=== PATIENT | male | born 1940 | race Two or more races ===

== ENCOUNTER 2019-01-27 00:57 | Inpatient (IN) | payer MEDICARE, OTHER ==
[~2019-01-27] VITALS: Ht 165.1 cm; Wt 85.7 kg
--- NOTE | 2019-01-27 01:05 | NUR ---
Crissy ulloa in [facility] - 01/27/19 at 0137 by SHEBA XRAY AT BEDSIDE.
[2019-01-27] MEDS ORDERED: APIX5TAB PO (01:06)
[2019-01-27] MEDS ORDERED: LISI1TAB9 PO (01:06)
[2019-01-27] MEDS ORDERED: ASPI-605 PO (01:06)
[2019-01-27] MEDS ORDERED: SITA100T PO (01:06)
[2019-01-27] MEDS ORDERED: FAMO20TA8 PO (01:06)
--- NOTE | 2019-01-27 01:10 | NUR ---
EKG DONE AT BEDSIDE.
--- NOTE | 2019-01-27 01:10 | NUR ---
PT BIBRA COMPLAINING OF CHEST PAIN X 30 MIN, NON-RADIATING 10/10 PAIN. PER EMS, ASPIRIN 325MG AND 2 NITRO GIVEN EN ROUTE. PT AXO4. RESPIRATIONS EVEN AND UNLABORED. PT DOES NOT HAVE CHEST PAIN AT THE TIME. PT PUT ON THE BOATING SAFETY OFFICER AND PULSE OX.
--- NOTE | 2019-01-27 01:15 | NUR ---
XRAY AT BEDSIDE.
[2019-01-27 01:17] LABS: BASOPHILS # (AUTO) 0.1 /CMM (0.0-0.2); BASOPHILS % (AUTO) 1.3 % (0.0-2.0); EOSINOPHILS % (AUTO) 2.5 % (0.0-6.0); HEMATOCRIT 32 % (39-51); HEMOGLOBIN 10.8 g/dL (13.5-17.5); LYMPHOCYTES # (AUTO) 1.9 /CMM (0.8-4.8); LYMPHOCYTES % (AUTO) 35.8 % (20.0-44.0); MEAN CORPUSCULAR HGB CONC 34 g/dl (31.0-36.0); MEAN CORPUSCULAR VOLUME 94 fL (80-96); MONOCYTES # (AUTO) 0.6 /CMM (0.1-1.30); MONOCYTES % (AUTO) 10.8 % (2.0-12.0); NEUTROPHILS # (AUTO) 2.7 /CMM (1.8-8.9); NEUTROPHILS % (AUTO) 49.6 % (43.0-81.0); PLATELET COUNT (AUTO) 219 /CMM (150-450); RED BLOOD CELL COUNT(AUTO) 3.42 MIL/uL (4.5-6.0); WHITE BLOOD COUNT (AUTO) 5.4 K/uL (4.3-11.0)
[2019-01-27 01:36] LABS: CALCIUM, SERUM 8.2 mg/dL (8.5-10.1); CARBON DIOXIDE 26 mmol/L (21-32); CHLORIDE 105 mmol/L (98-107); CREATININE 1.2 mg/dL (0.6-1.3); GLUCOSE 109 mg/dL (74-106); POTASSIUM 3.9 mmol/L (3.5-5.1); SODIUM SERUM 140 mmol/L (136-145); UREA NITROGEN, BLOOD 22 mg/dL (7-18)
[2019-01-27 01:44] LABS: ALANINE AMINOTRANSFERASE 18 U/L (12-78); ALBUMIN 3.3 g/dL (3.4-5.0); ALKALINE PHOSPHATASE 93 U/L (46-116); ASPARTATE AMINOTRANSFERASE 17 U/L (15-37); B-TYPE NATRIURETIC PEPTIDE 856 PG/ML (0-125); BILIRUBIN,DIRECT 0.1 mg/dL (0.0-0.2); BILIRUBIN,TOTAL 0.4 mg/dL (0.2-1.0); TOTAL PROTEIN, SERUM 7.3 g/dL (6.4-8.2)
--- NOTE | 2019-01-27 01:45 | NUR ---
PT RESTING IN BED COMFORTABLY, NAD NOTED. WILL CONTINUE TO MONITOR.
--- NOTE | 2019-01-27 02:03 | NUR ---
CALLED LAKESHIA GOSS FOR TELE BED.
--- NOTE | 2019-01-27 02:19 | NUR ---
CALLED DAVINA FOR READING OF CHEST X-RAY.
--- NOTE | 2019-01-27 03:15 | NUR ---
REPORT GIVEN TO JAMES SHRESTHA FOR SAHARA.
--- NOTE | 2019-01-27 03:19 | NUR ---
SON CALLED TO CHECK STATUS OF PT. LEFT CALL BACK INFO. BRANDON . ASLEEP BETWEEN 7-11AM.
[2019-01-27 04:20] VITALS: BP 97/61
--- NOTE | 2019-01-27 04:20 | NUR ---
RN OPEN NOTES RECEIVED PATIENT FROM ER VIA DANIELA. A/O X4. NO SIGNS OF DISTRESS OR DISCOMFORT. BREATHING EVEN AND UNLABORED. ON 2LPM O2 VIA NC. IV ACCESS IN RFA AND L HAND, PATENT AND INTACT, NO SIGNS OF REDNESS OR INFILTRATION. ORIENTED PATIENT TO UNIT AND ROOM. ATTACHED TELE MONITOR WITH NSR NOTED. NO SKIN ISSUES NOTED. BED IN LOW LOCKED POSITION WITH SIDE RAILS X2. CALL LIGHT WITHIN REACH. WILL CONTINUE TO MONITOR.
[2019-01-27] MEDS ORDERED: ONDANSETRON HCL/PF 4 MG/2 ML VIAL IVP PRN (04:30)
[2019-01-27] MEDS ORDERED: ACETAMINOPHEN 325 MG TABLET PO PRN (04:30)
[2019-01-27] MEDS ORDERED: MAG HYDROX/AL HYDROX/SIMETH 30 ML UDC PO PRN (04:30)
[2019-01-27] MEDS ORDERED: Z GUARD REMEDY 2 OZ OINT TP PRN (04:30)
[2019-01-27] MEDS ORDERED: HYDROCODONE/APAP 5/325MG 1 EACH TABLET PO PRN (04:30)
[2019-01-27] MEDS ORDERED: MAGNESIUM HYDROXIDE 30 ML UDC PO PRN (04:30)
[2019-01-27 04:47] VITALS: BP 97/61
--- NOTE | 2019-01-27 07:30 | NUR ---
PT RECEIVED RESTING COMFORTABLY IN BED. NO S/S OR C/O PAIN OR DISTRESS NOTED. SIDE RAILS UP X2, CALL LIGHT LEFT WITHIN REACH. WILL CONTINUE PLAN OF CARE.
--- NOTE | 2019-01-27 07:31 | NUR ---
RN CLOSING NOTES PATIENT RESTING IN BED. A/O X4. NO SIGNS OF DISTRESS OR DISCOMFORT. BREATHING EVEN AND UNLABORED. ON 2LPM O2 VIA NC. IV ACCESS IN RFA AND L HAND, PATENT AND INTACT, NO SIGNS OF REDNESS OR INFILTRATION. ON TELE MONITORING. ALL NEEDS MET. NO SIGNIFICANT CHANGES THROUGH THE NIGHT. BED IN LOW LOCKED POSITION WITH SIDE RAILS X2. CALL LIGHT WITHIN REACH. ENDORSED TO AM SHIFT FOR SAHARA.
[2019-01-27 08:00] VITALS: BP 107/66
[2019-01-27 08:37] LABS: IRON, SERUM 57 ug/dl (50-175); TOTAL IRON BINDING CAPACITY 226 ug/dl (250-450)
[2019-01-27 08:51] LABS: FERRITIN 394 ng/mL (8-388)
[2019-01-27] MEDS: ASPIRIN EC 81 MG TABLET.DR PO SCH (09:00)
[2019-01-27] MEDS ORDERED: Medication Not On Formulary EA (Sitagliptin Phosphate (Januvia) 100 MG) PO SCH (09:00)
[2019-01-27] MEDS: FAMOTIDINE (20 MG) 20 MG TABLET PO SCH ×2 (09:00→17:00)
[2019-01-27] MEDS ORDERED: LISINOPRIL (10MG) 10 MG TABLET PO SCH (09:00)
[2019-01-27] MEDS ORDERED: Medication Not On Formulary EA (Lisinopril/Hydrochlorothiazide (Lisinopril-Hctz 10-12.5 PO SCH (09:00)
[2019-01-27] MEDS ORDERED: HYDROCHLOROTHIAZIDE 25 MG TABLET PO SCH (09:00)
[2019-01-27] MEDS ORDERED: APIXABAN 5 MG TABLET PO SCH ×2 (09:00)
[2019-01-27] MEDS ORDERED: IV NS 0.9% 250 ML IV ONE (10:33)
[2019-01-27] MEDS ORDERED: CT SWABBABLE VALVE TRANS SET 1 EA INFUS.SET MC ONE (10:33)
[2019-01-27] MEDS ORDERED: IOHEXOL-350 100 ML VIAL IV ONE (10:33)
[2019-01-27] MEDS ORDERED: NITROGLYCERIN 4.9 GM SPRAY SL ONE (12:00)
[2019-01-27] MEDS ORDERED: IV NS 0.9% 500 ML IV PRN (12:00)
[2019-01-27] MEDS: LINAGLIPTIN 5 MG TABLET PO SCH (13:49)
[2019-01-27 16:00] VITALS: BP 116/78
[2019-01-27] MEDS: APIXABAN 5 MG TABLET PO SCH (17:57)
--- NOTE | 2019-01-27 19:01 | NUR ---
CHANGE OF SHIFT REPORT PT RESTING COMFORTABLY IN BED. NO S/S OR C/O PAIN OR DISTRESS NOTED. SIDE RAILS UP X2, CALL LIGHT LEFT WITHIN REACH. NO SIGNIFICANT CHANGES SINCE PREVIOUS SHIFT. WILL GIVE REPORT TO CHAVEZ SHRESTHA.
--- NOTE | 2019-01-27 19:20 | NUR ---
RN INITIAL NOTES: RECEIVED REPORT FROM NATALIYA SHRESTHA. PT RESTING ON A CHAIR, AMBULATES AROUND THE HALLWAY AT TIMES, DENIES ANY CHEST PAIN OR SOB AT THIS TIME. ON RA RESPIRATION EVEN AND UNLABORED. S/P CT ANGIO 01/27/19. IV ACCESS PATENT AND FLUSHING WELL, ON HL. SAFETY PRECAUTIONS FOR FALL INITIATED, CALL LIGHT IN REACH, WILL CONTINUE MONITORING PT.
[2019-01-27 20:00] VITALS: BP 155/63
--- NOTE | 2019-01-28 01:28 | NUR ---
RN NOTES: PT RESTING COMFORTABLY, NO FACIAL GRIMACE NOTED, WILL CONTINUE TO MONITOR
[2019-01-28 06:22] LABS: BASOPHILS # (AUTO) 0.1 /CMM (0.0-0.2); BASOPHILS % (AUTO) 1.4 % (0.0-2.0); EOSINOPHILS % (AUTO) 2.1 % (0.0-6.0); HEMATOCRIT 30 % (39-51); HEMOGLOBIN 10.4 g/dL (13.5-17.5); LYMPHOCYTES # (AUTO) 1.3 /CMM (0.8-4.8); LYMPHOCYTES % (AUTO) 29.4 % (20.0-44.0); MEAN CORPUSCULAR HGB CONC 35 g/dl (31.0-36.0); MEAN CORPUSCULAR VOLUME 93 fL (80-96); MONOCYTES # (AUTO) 0.5 /CMM (0.1-1.30); MONOCYTES % (AUTO) 11.9 % (2.0-12.0); NEUTROPHILS # (AUTO) 2.5 /CMM (1.8-8.9); NEUTROPHILS % (AUTO) 55.2 % (43.0-81.0); PLATELET COUNT (AUTO) 202 /CMM (150-450); RED BLOOD CELL COUNT(AUTO) 3.26 MIL/uL (4.5-6.0); WHITE BLOOD COUNT (AUTO) 4.5 K/uL (4.3-11.0)
[2019-01-28 06:23] LABS: CALCIUM, SERUM 8.3 mg/dL (8.5-10.1); CARBON DIOXIDE 25 mmol/L (21-32); CHLORIDE 105 mmol/L (98-107); GLUCOSE 103 mg/dL (74-106); MAGNESIUM 1.9 mg/dL (1.8-2.4); PHOSPHORUS 3.9 mg/dL (2.5-4.9); SODIUM SERUM 141 mmol/L (136-145); UREA NITROGEN, BLOOD 18 mg/dL (7-18)
[2019-01-28 06:35] LABS: CHOLESTEROL 219 mg/dL (<200); HDL CHOLESTEROL 38 mg/dL (40-60); LDL 166 mg/dL (0-99); THYROID STIMULATING HORMONE 1.936 uIU/mL (0.358-3.74); TRIGLYCERIDES 150 mg/dL (30-150)
--- NOTE | 2019-01-28 06:36 | NUR ---
RN CLOSING NOTES: PT IN BED, AWAKE, DENIES ANY CHEST PAIN OR DISCOMFORT THROUGHOUT THE SHIFT. IV ACCESS REMAINS PATENT AND FLUSHING WELL, ON HL. VS REMAINS STABLE, NEEDS ATTENDED. SAFETY PRECAUTIONS FOR FALL REMAINS ENGAGED, CALL LIGHT IN REACH, WILL ENDORSE TO DAY RN FOR CONTINUITY OF CARE.
[2019-01-28] MEDS ORDERED: PANTOPRAZOLE 40 MG TABLET.DR PO SCH (07:30)
--- NOTE | 2019-01-28 07:48 | NUR ---
MS RN OPENING NOTES RECEIVED PT LAYING IN BED RESTING COMFORTABLY. PT IS EASILY AROUSABLE. PT IS A/O X4, AFEBRILE. RESPIRATIONS ARE EVEN AND UNLABORED, NOT IN ANY ACUTE DISTRESS NOTED. PT DENIES ANY PAIN AT THIS TIME, NO C/O SOB, N/V. PT IS AMBULATORY. IV TO RFA AND RAC INTACT, NO INFILTRATION NOTED. DRESSING KEPT CLEAN AND DRY. SAFETY MEASURES ARE IN PLACE. INSTRUCTED PT TO USE CALL LIGHT WHEN ASSISTANCE IS NEEDED, CALL LIGHT IS LEFT WITHIN REACH. WILL MONITOR THROUGHOUT SHIFT FOR CONTINUITY OF CARE.
[2019-01-28 08:00] VITALS: BP_SYST 108; BP_DIAS 60; BP_DIAS 62
[2019-01-28] MEDS: FAMOTIDINE (20 MG) 20 MG TABLET PO SCH ×2 (08:08→08:12)
[2019-01-28] MEDS: LINAGLIPTIN 5 MG TABLET PO SCH ×2 (08:08→08:13)
[2019-01-28] MEDS: ASPIRIN EC 81 MG TABLET.DR PO SCH ×2 (08:08→08:12)
[2019-01-28] MEDS: APIXABAN 5 MG TABLET PO SCH (08:08)
--- NOTE | 2019-01-28 08:13 | NUR ---
MS RN NOTES-- PT REFUSED ASA, PEPCID, TRADJENTA. EXPLAINED THE RISKS AND BENEFITS X3, PT STILL REFUSED. HONORED PT'S DIGNITY AND THE RIGHTS TO REFUSE. WILL CONTINUE TO MONITOR CLOSELY.
--- NOTE | 2019-01-28 09:14 | NUR ---
MS RN NOTES-- PT WAS SEEN AND EXAMINED BY DR. ARMSTRONG AND MADE PT AND SON YENNY AWARE (OVER THE PHONE) THAT PT NEEDS A STRESS TEST RECOMMENDED BY CARDIO D/T CT RESULTS. PT STATED HE WANTS TO GO HOME AND THAT HE HAS AN APPT TOMORROW WITH SURGEON. WILL ATTEMPT TO CALL [facility]G FOR RECORDS.
--- NOTE | 2019-01-28 09:22 | NUR ---
MS RN NOTES-- PT WANTS TO GO AMA. EXPLAINED THE RISKS OF GOING AMA, PT STATED "I HAVE APPOINTMENT WITH SURGEON TOMORROW AT 10." NOTIFIED DR[address] ARMSTRONG. DR. ARMSTRONG EXPLAINED IMPORTANCE OF DOING A STRESS TEST TO PREVENT COMPLICATIONS. SON MADE AWARE. PT STATED "I WANT TO GO HOME." WILL PREPARE AMA PAPERWORK.
--- NOTE | 2019-01-28 10:32 | NUR ---
MS RN AMA DISCHARGE NOTES PT LEFT AMA WITH SON YENNY. EXPLAINED AMA FORM TO PT AND SON AND STATED THEY UNDERSTOOD AND PT WOULD LIKE TO LEAVE. INFORMED PT TO MAKE SURE HE ATTENDS HIS APPT WITH [facility]ARDIOTHOR[facility]IC AND IF PT EXPERIENCES ANY CHEST PAIN TO GO TO THE NEAREST HOSPITAL OR CALL 911. PT IS A/O X4, AFEBRILE. RESPIRATIONS ARE EVEN AND UNLABORED, NOT IN ANY ACUTE DISTRESS NOTED. PT DENIES ANY CHEST PAIN, SOB, N/V. IV SITE REMOVED, APPLIED PRESSURE AND TOLERATED WELL. NO SKIN ISSUES NOTED. ALL BELONGINGS SENT WITH PT. AMA DISCHARGE PAPERWORK GIVEN TO PT AND SON WITH VERBAL AND WRITTEN UNDERSTANDING. PT LEFT IN STABLE CONDITION.
[2019-01-29] MEDS ORDERED: REGADENOSON 0.4 MG/5 ML DISP.SYRIN IVP ONE (08:00)
[2019-01-29 11:09] LABS: *SPE A/G RATIO 1.1 (0.7-1.7); *SPE ALBUMIN 3.5 g/dL (2.9-4.4); *SPE ALPHA-1-GLOBULIN 0.3 g/dL (0.0-0.4); *SPE ALPHA-2-GLOBULIN 0.7 g/dL (0.4-1.0); *SPE GLOBULIN, TOTAL 3.2 g/dL (2.2-3.9); *SPE M-SPIKE Not Observed g/dL (Not Observed); *SPEGAMMA GLOBULIN 1.3 g/dL (0.4-1.8)
== END 2019-01-28 10:45 | disposition left against medical advice (07) | DRG 302 ==
LOC: ER 00:58 → EDBD 00:58 → TELE 03:44 → MED 08:43
PROVIDERS: ADMIT Nurse Practitioner Acute Care; ATTEND Student in an Organized Health Care Education/Training Program
DX: I25.10 Atherosclerotic heart disease of native coronary artery without angina pectoris (principal); N17.0 Acute kidney failure with tubular necrosis; D68.59 Other primary thrombophilia; E44.1 Mild protein-calorie malnutrition; Z86.711 Personal history of pulmonary embolism; Z79.01 Long term (current) use of anticoagulants; Z79.82 Long term (current) use of aspirin; Z79.84 Long term (current) use of oral hypoglycemic drugs; Z79.899 Other long term (current) drug therapy; D64.9 Anemia, unspecified; E78.5 Hyperlipidemia, unspecified; Z95.2 Presence of prosthetic heart valve; I35.0 Nonrheumatic aortic (valve) stenosis; K80.20 Calculus of gallbladder without cholecystitis without obstruction; N21.0 Calculus in bladder; I70.0 Atherosclerosis of aorta; I12.9 Hypertensive chronic kidney disease with stage 1 through stage 4 chronic kidney disease, or unspecified chronic kidney disease; E11.22 Type 2 diabetes mellitus with diabetic chronic kidney disease; N18.9 Chronic kidney disease, unspecified
CPT/HCPCS: 36415; 71045-TC; 75574; 80048-TC; 80061-TC; 80076-TC; 82728-TC; 82962-TC; 83540-TC; 83735-TC; 83880; 84100-TC; 84155; 84165; 84443-TC; 84484-TC; 85025-TC; 85730-TC; 87081-TC; 93307-TC; G0378; J7050; Q9967